=== PATIENT | male | born 1995 | race Caucasian/White ===

== ENCOUNTER 2017-10-08 13:38 | Emergency (ER) | payer OTHER ==
[2017-10-08 13:52] VITALS: BP 138/92; PULSE 92; TEMP 100.1; BMI 26.4
--- NOTE | 2017-10-08 15:04 | PDOC ---
History of Present Illness - General Chief Complaint: Sore Throat Stated Complaint: SORE THROAT Time Seen by Provider: 10/08/17 14:44 History Source: Patient Exam Limitations: No Limitations - History of Present Illness Initial Comments: 10/08/17 15:02 22y M no pmhx presents with complaint of sore throat. pt states approx 3 days ago, he started having body aches, malaise, dry cough, congestion, mild sore throat, subjective fever he went to urgent care yesrday and had a negative rapid strep and monospot. he was given an rx for topical lidoain that he has been swishing and swallowing with some improvemnt. pt states he gargled lemon juice and salt with significant pain. pt states he is able to swallow albeit with pain. no reent travel or known sick contacts. pt denies any cp, sob, abd pain, n/v, leg swelling. Past History - Past Medical History Allergies/Adverse Reactions: Allergies Allergy/AdvReac Type Severity Reaction Status Date / Time No Known Allergies Allergy Verified 10/08/17 13:40 Home Medications: Ambulatory Orders Ibuprofen 600 mg PO ONCE PRN 10/08/17 COPD: No - Suicide/Smoking/Psychosocial Hx Smoking History: Former smoker Have you smoked in the past 12 months: No If you are a former smoker, when did you quit?: 2017 Information on smoking cessation initiated: No Hx Alcohol Use: Yes (OCCASIONAL) Drug/Substance Use Hx: No Substance Use Type: None Review of Systems - Review of Systems Able to Perform ROS?: Yes Comments:: 10/08/17 15:06 Constitutional - +subjectif fever no reported Chills, HEENT: +sore throat no reported vision changes, Respiratory: +cough no reported cough, sob, hemoptysis Cardiac: no reported chest pain, palpitations, light headedness, leg swelling Abd/GI: no reported abd pain, nausea, vomiting, blood per rectum, melena, diarrhea : no reported dysuria, frequency, discharge Musculskelatal - no reported back pain, joint swelling skin - no reported bruising, erythema, rash neurological: no reported headache, numbness, focal weakness, tingling, ataxia, hematologic: no reported easy bruising, easy bleeding *Physical Exam - Vital Signs Last Vital Signs Temp Pulse Resp BP Pulse Ox 100.1 F H 92 H 16 138/92 97 10/08/17 13:40 10/08/17 13:40 10/08/17 13:40 10/08/17 13:40 10/08/17 13:40 - Physical Exam Comments: 10/08/17 15:07 GENERAL: The patient is awake, alert, and fully oriented, Nontoxic - in no acute distress. HEAD: Normocephalic, atraumatic. EYES: extraocular movements intact, sclera anicteric, conjunctiva clear. ENT: Normal voice, Moist mucous membranes, erythema in the posterior pharynx with whitish exudates, midline uvula, no significant edema, +canker sore noted in the L buccle membrane and in the hard palate NECK: Normal range of motion, supple, no lympahdenopathy LUNGS: Breath sounds equal, clear to auscultation bilaterally. No wheezes, no rhonchi, no rales. HEART: Regular rate and rhythm, normal S1 and S2 without murmur, rub or gallop. ABDOMEN: Soft, nontender, No guarding, no rebound. . No CVA tenderness EXTREMITIES: Normal range of motion, no edema. NEUROLOGICAL: No facial assymetry, Normal speech, PSYCH: Normal mood, normal affect. SKIN: Warm, Dry, normal turgor, Medical Decision Making - Medical Decision Making 10/08/17 15:08 supect viral pharyngitis pt had workup at urgent care and will have pt fu for throat cx results recommended pt avoid gargling lemon juice/salt - recommended lemon juic/tea/ honey or salt water gargles instead recommend continue using his lidocain swish return preatuions were discussed pmd fu I discussed the physical exam findings, ancillary test results and final diagnoses with the patient. I answered all of the patient's questions. The patient was satisfied with the care received and felt comfortable with the discharge plan and treatment plan. The patient will call their primary care physician within 24 hours to arrange follow-up and will return to the Emergency Department with any new, persistent or worsening symptoms. *DC/Admit/Observation/Transfer Diagnosis at time of Disposition: Viral pharyngitis - Discharge Dispostion Disposition: HOME Condition at time of disposition: Stable Decision to Admit order: No - Referrals Referrals: Oscar Barreto MD [Primary Care Provider] - - Patient Instructions Printed Discharge Instructions: DI for Viral Pharyngitis Additional Instructions: As you had a rapid strep at urgent care yesterday, I suspect this is viral pharyngitis. Continue your medications as precibed (topical lidocaine) you can take tylenol or motrin as needed for your fever/body aches. Return to the emergency department immediately with ANY new, persistent or worsening symptoms including difficulty swalling or other concerns. You MUST call and follow up with your doctor tomorrow for further evaluation of your symptoms. Results were discussed with you. Please make sure your doctor reviews the results of your emergency evaluation. Print Language: DANISH - Post Discharge Activity
== END 2017-10-08 15:12 | disposition home or self-care (01) ==
LOC: FER 13:38
DX: J02.8 Acute pharyngitis due to other specified organisms (principal); B97.89 Other viral agents as the cause of diseases classified elsewhere; Z87.891 Personal history of nicotine dependence
CPT/HCPCS: 99281-25